=== PATIENT | female | born 1960 | race African-American/Black ===

== ENCOUNTER 2022-02-03 23:22 | Emergency (ER) | payer OTHER ==
[~2022-02-03] VITALS: Ht 160 cm; Wt 61.2 kg
[2022-02-04 05:04] VITALS: BP 121/76
== END 2022-02-04 05:13 | disposition home or self-care (01) ==
LOC: EMS 23:23
DX: F69 Unspecified disorder of adult personality and behavior (principal); R45.851 Suicidal ideations
CPT/HCPCS: 99285; Z7502